=== PATIENT | female | born 1935 | race Caucasian/White ===

== ENCOUNTER 2017-09-12 15:17 | Emergency (ER) | payer BC, OTHER ==
[~2017-09-12] VITALS: Ht 149.9 cm; Wt 58.0 kg
[~2017-09-12 15:17] MED LIST: AMLO10TA4 PO; ASPEC81 PO; BUSP15TA70 PO; CALC500C70 PO; CRAN1TAB9 PO; DICY10CA12 PO; FLAX100024 PO; FLNIN NAE; GARLIC OIL PO; GLC500 PO; HYDR25TA4 PO; IRON1TAB5 PO; LISI40TA PO; LORA-741 PO; MELA1CAP PO; METO50TA7 PO; MISCCAP80 PO; MULT-506 PO; PANT40TA PO; POLY335019 PO; SIME1CAP9 PO; TRAM-10 PO; TRAZ1TAB16 PO; TYLOTC500 PO; VENL75CA PO; ZOLE5INJ IV; [UNRECOGNIZED DRUG - OTHER] OPB
[2017-09-12 15:23] VITALS: TEMP 36.7; Ht 149.9 cm; Wt 58.0 kg
[2017-09-12] MEDS ORDERED: OXYCODONE/ACETAMINOPHEN 5-325 TAB PO STA (15:50)
--- NOTE | 2017-09-12 15:55 | EMERGENCY ROOM VISIT NOTE ---
History First contact with patient: 15:27 Chief Complaint: OTHER COMPLAINT Stated Complaint: TINGLING IN FEET,LOWER LEGS,SOME IN ARMS History of Present Illness The patient is a 81 year old female who presents to the Emergency Room via private vehicle accompanied by with complaints of "tingling in feet, lower legs, some in arms". The patient states that she has diabetes, and for the past few days as a tingling intermittently in her feet, radiating up her calves bilaterally and shins as well as in her hands and wrists. She felt this could be diabetic neuropathy but believes it is very fast onset if it is. She states that yesterday evening she began with diarrhea, and suddenly additional episodes. She states that she also has urinary burning like she has UTI. She is tried Imodium as well as a Zofran to diarrhea and urine. She called the doctor office and spoke with the nurse who told her to stop the Azo if she was coming here for the urinalysis. She notes she is not held her medication today. She thought maybe the oxycodone which she's been taking for her chronic back pain could because the tingling therefore stopped it. She notes that the back pain is worse, but she's not had her medication. She also notes some chest burning which began today. She notes she has many gastric problems to include gastroparesis. There are associated chills. She denies any speech troubles, or weakness. Review of Systems A complete 10-point Review of Systems was discussed with the patient, with pertinent positives and negatives listed in the History of Present Illness. All remaining Review of Systems questions can be considered negative unless otherwise specified. Past Medical/Surgical History Medical Problems: (1) Diabetes mellitus type 2 (2) Diastolic heart failure (3) Diverticular disease of colon (4) Dyslipidemia (5) Dysphagia (6) Gastroesophageal reflux disease (7) Gastroparesis (8) History of adenomatous polyp of colon (9) s/p appendectomy (10) s/p bladder suspension (11) s/p cardiac cath (12) s/p cholecystectomy (13) s/p colonoscopy (14) s/p hysterectomy Family History No pertinent. Social History Smoking Status: Never Smoker Alcohol Use: none Drug Use: none Marital Status: Housing Status: lives with family Occupation Status: retired Current/Historical Medications Scheduled Amlodipine Besylate (Norvasc), 10 MG PO DAILY Aspirin Enteric Coated (Ecotrin Or Generic), 81 MG PO DAILY Atorvastatin (Lipitor), 10 MG PO DAILY Bupropion (Wellbutrin Sr), 50 MG PO DAILY Calcium/Vitamin D (Os-Vladislav 500 Plus D), 1 TAB PO BID Cephalexin Monohydrate (Keflex), 500 MG PO BID Citalopram (Citalopram Hydrobromide), 1 TAB PO DAILY Cranberry (Vaccinium Macrocarp (Cranberry), 1 TAB PO DAILY Diclofenac Sodium (Topical) (Voltaren 1% Top Gel), 1 APPLN TOP PRN UD Flaxseed (Linseed) (Flax Seed Oil), 1,000 MG PO DAILY Glipizide (Glipizide Er), 1 TAB PO DAILY Hydrochlorothiazide (Hctz), 25 MG PO DAILY Lisinopril (Prinivil), 40 MG PO DAILY Melatonin-Pyridoxine (Melatonin), 3 MG PO HS Metoprolol Succ (Toprol Xl) (Toprol-Xl ), 100 MG PO BID Multivitamin (Multivitamin), 1 TAB PO DAILY Pantoprazole (Protonix), 40 MG PO DAILY Probiotic Product (Probiotic), 1 CAP PO DAILY [Garlic Oil 1000MG], 2 CAPSULES PO DAILY Scheduled PRN Dicyclomine Hcl (Dicyclomine Hcl), 10 MG PO TID PRN for CRAMPS Fluticasone Propionate (Nasal) (Flonase Allergy Relief), 2 SPRAYS RICHIE DAILY PRN for Nasal Congestion Lorazepam (Ativan), 0.5 MG PO HS PRN for Sleep Oxycodone/Acetaminophen 5MG/325MG (Percocet 5MG/325MG), 1 TABLET PO Q6H PRN for Pain Polyethylene Glycol 3350 (Miralax), 1 DOSE PO 3XWK PRN for PRN Polyethylene Glycol-Propylene (Systane), 1 DROPS OP QID PRN for DRY EYES Simethicone (Gas Relief), 1 CAP PO DAILY PRN for PRN Sucralfate (Carafate), 1 TAB PO ACHS PRN for Trazodone Hcl (Desyrel), 25-50 MG PO HS PRN for Sleep Physical Exam Vital Signs Date Time Temp Pulse Resp B/P (MAP) Pulse Ox O2 Delivery O2 Flow Rate FiO2 09/12/17 18:00 62 18 127/69 94 09/12/17 17:05 66 18 132/66 98 Room Air 09/12/17 16:09 71 09/12/17 16:00 97 Room Air 09/12/17 15:23 36.7 69 18 113/68 98 Room Air Physical Exam VITAL SIGNS - Vital signs and nursing notes were reviewed. Stable. GENERAL - 81-year-old female appearing her stated age who is in no acute distress. Communicates well with provider and answers questions appropriately. SKIN - Without rashes. HEAD - NC/AT. EYES - PERRL with EOMI bilaterally. Sclera anicteric. Palpebral conjunctiva pink and moist with no injection noted. EARS - No deformities of external structures noted on gross examination bilaterally. No pain elicited with palpation of the tragus bilaterally. External auditory canals without discharge or otorrhea. Tympanic membranes pearly andino without retraction or bulging. No fluid or purulent material visualized behind the TM. Handle of malleus, umbo, cone of light, pars tensa/ flaccid all easily visualized. NOSE - Midline and without cyanosis. No epistaxis or purulent drainage noted. Septum midline without deviation or septal hematoma noted. MOUTH/OROPHARYNX - Without perioral cyanosis. Buccal mucosa pink and moist and without leukoplakia. Tongue midline with equal elevation of palate bilaterally. No tonsillar hypertrophy, erythema, or exudates noted. Fair dentition noted. NECK - Neck with FROM. Supple to palpation. No lymphadenopathy noted. No nuchal rigidity. LUNGS - Chest wall symmetric without accessory muscle use, intercostals retractions, or central cyanosis. Normal vesicular breath sounds CTA B/L. No wheezes, rales, or rhonchi appreciated. CARDIAC - RRR with S1/S2. No murmur, rubs, or gallops appreciated. ABDOMEN - Abdominal contour normal without pulsations or visible masses. BS normoactive all four quadrants. No tenderness, palpable masses, hepatosplenomegaly, or ascites noted. EXTREMITIES - No clubbing or peripheral cyanosis. No pretibial edema present. + 5/5 strength noted in UE/LE bilaterally. NEUROLOGIC - Cranial nerves II through XII grossly intact. Sensory intact to light touch throughout. PSYCH - A&O, and cooperates fully with examiner. Pt is very pleasant and interacts well with examiner. Medical Decision & Procedures ER Provider Diagnostic Interpretation: CHEST ONE VIEW PORTABLE HISTORY: Atypical chest pain COMPARISON: Chest 08/19/2014. FINDINGS: The lungs are clear. The heart remains mildly enlarged. Tortuous thoracic aorta. No pleural effusions. No pneumothorax. S-shaped scoliosis. Lumbar spine fusion hardware. IMPRESSION: Stable mild cardiomegaly. No acute process within the chest. Electronically signed by: Sukhdeep Mercer M.D. 09/12/2017 4:14 PM Dictated Date/Time: 09/12/2017 4:13 PM Laboratory Results 09/12/17 15:54 Red Blood Count 4.19, Mean Corpuscular Volume 94.0, Mean Corpuscular Hemoglobin 31.5, Mean Corpuscular Hemoglobin Concent 33.5, Mean Platelet Volume 9.6, Neutrophils (%) (Auto) 75.0, Lymphocytes (%) (Auto) 14.8, Monocytes (%) (Auto) 9.0, Eosinophils (%) (Auto) 0.6, Basophils (%) (Auto) 0.5, Neutrophils # (Auto) 6.01, Lymphocytes # (Auto) 1.19, Monocytes # (Auto) 0.72, Eosinophils # (Auto) 0.05, Basophils # (Auto) 0.04 09/12/17 15:54 Test 09/12/17 15:40 09/12/17 15:54 Urine Color DK YELLOW Urine Appearance CLEAR (CLEAR) Urine pH 6.0 (4.5-7.5) Urine Specific [place] 1.022 (1.000-1.030) Urine Protein NEG (NEG) Urine Glucose (UA) NEG (NEG) Urine Ketones NEG (NEG) Urine Occult Blood NEG (NEG) Urine Nitrite POS (NEG) Urine Bilirubin NEG (NEG) Urine Urobilinogen NEG (NEG) Urine Leukocyte Esterase TRACE (NEG) Urine WBC (Auto) 1-5 /hpf (0-5) Urine RBC (Auto) 0-4 /hpf (0-4) Urine Hyaline Casts (Auto) 1-5 /lpf (0-5) Urine Epithelial Cells (Auto) >30 /lpf (0-5) Urine Bacteria (Auto) NEG (NEG) White Blood Count 8.02 K/uL (4.8-10.8) Red Blood Count 4.19 M/uL (4.2-5.4) Hemoglobin 13.2 g/dL (12.0-16.0) Hematocrit 39.4 % (37-47) Mean Corpuscular Volume 94.0 fL (80-100) Mean Corpuscular Hemoglobin 31.5 pg (25-34) Mean Corpuscular Hemoglobin Concent 33.5 g/dl (32-36) Platelet Count 251 K/uL (130-400) Mean Platelet Volume 9.6 fL (7.4-10.4) Neutrophils (%) (Auto) 75.0 % Lymphocytes (%) (Auto) 14.8 % Monocytes (%) (Auto) 9.0 % Eosinophils (%) (Auto) 0.6 % Basophils (%) (Auto) 0.5 % Neutrophils # (Auto) 6.01 K/uL (1.4-6.5) Lymphocytes # (Auto) 1.19 K/uL (1.2-3.4) Monocytes # (Auto) 0.72 K/uL (0.11-0.59) Eosinophils # (Auto) 0.05 K/uL (0-0.5) Basophils # (Auto) 0.04 K/uL (0-0.2) RDW Standard Deviation 45.1 fL (36.4-46.3) RDW Coefficient of Variation 13.0 % (11.5-14.5) Immature Granulocyte % (Auto) 0.1 % Immature Granulocyte # (Auto) 0.01 K/uL (0.00-0.02) Prothrombin Time 10.7 SECONDS (9.0-12.0) Prothromb Time International Ratio 1.0 (0.9-1.1) Activated Partial Thromboplast Time 30.1 SECONDS (21.0-31.0) Partial Thromboplastin Ratio 1.2 Anion Gap 8.0 mmol/L (3-11) Est Creatinine Clear Calc Drug Dose 39.8 ml/min Estimated GFR () 73.4 Estimated GFR (Non- 63.4 BUN/Creatinine Ratio 29.7 (10-20) Calcium Level 8.6 mg/dl (8.5-10.1) Magnesium Level 2.2 mg/dl (1.8-2.4) Total Bilirubin 0.4 mg/dl (0.2-1) Aspartate Amino Transf (AST/SGOT) 13 U/L (15-37) Alanine Aminotransferase (ALT/SGPT) 21 U/L (12-78) Alkaline Phosphatase 86 U/L (45-117) Total Creatine Kinase 107 U/L (26-192) Creatine Kinase MB 1.5 ng/ml (0.5-3.6) Creatine Kinase MB Ratio 1.4 (0-3.0) Troponin I < 0.015 ng/ml (0-0.045) Total Protein 8.2 gm/dl (6.4-8.2) Albumin 4.0 gm/dl (3.4-5.0) Globulin 4.2 gm/dl (2.5-4.0) Albumin/Globulin Ratio 1.0 (0.9-2) Thyroid Stimulating Hormone (TSH) 4.310 uIu/ml (0.300-4.500) Medications Administered Medications (Trade) Dose Ordered Sig/Melany Route Start Time Stop Time Status Last Admin Dose Admin Oxycodone/ Acetaminophen (Percocet 5-325mg Tab) 1 tab NOW STAT PO 09/12/17 15:50 09/12/17 15:52 DC 09/12/17 16:10 1 TAB Medical Decision Patient was seen and evaluated as above. She presents to us today with tingling in feet, lower legs and the arms bilaterally. She notes it is over the past few days, there is also chest burning, urinary burning, and back pain. She examines well, and has stable vital signs. Chest x-ray stable compared to previous. Bedside EKG reveals normal sinus rhythm, and when compared with EKG of May 22 2014 no significant change was found. Troponin was negative. Urine has nitrites, I suspect UTI. Exam reveals no evidence of neurologic cause from the brain. CBC reveals no concerning leukocytosis or anemia. Coag is normal. Metabolic panel reveals sodium somewhat low at 134, BUN high at 25, creatinine is okay. Because high at 188. Urine again positive for nitrites. I able this time treat for UTI, and discussed the case with the attending physician. I suspect she is likely experiencing reflux, chronic back pain, I UTI as well as probably dehydration causing some of the tingling. She is to follow with her family doctor regarding today's visit. She appears stable for outpatient management. She will be given Keflex in the outpatient setting. She was educated upon management, educated upon worrisome symptoms which to return, had questions answered prior to discharge, and was discharged home in good condition. In evaluation treatment this patient following differential diagnoses were entertained: WI, PE, CVA, TIA, dehydration, unlikely slight abnormality, UTI, among others. Impression Primary Impression: UTI (urinary tract infection) Departure Information Dispostion Home / Self-Care Condition GOOD Prescriptions Cephalexin Monohydrate (Keflex) 500 Mg Cap 500 MG PO BID for 7 Days, #14 CAP Prov: Bill Wiley PA-C 09/12/17 Referrals No Doctor, Assigned (PCP) Patient Instructions My [facility] Additional Instructions You have been treated in the Emergency Department for a Urinary Tract Infection (UTI). You have been prescribed keflex to be taken twice daily. This is an antibiotic. All antibiotics have the potential to cause diarrhea. Stop this medication and contact a medical provider if you were to develop any significant adverse side effects including: wheezing, shortness of breath, passing out, vomiting, or a diffuse rash. Always take antibiotics as directed and COMPLETE the ENTIRE course regardless of the improvement of your symptoms. Return to the emergency department if your symptoms worsen despite treatment course outlined above. Drink plenty of water and stay well hydrated. As with any trip to the Emergency Department, you should follow-up with your Primary Care Provider from today's visit. Return to the emergency department if your symptoms persist despite treatment plan outlined above or if the following symptoms occur: increased fevers, chills , low back pain, nausea/vomiting, or blood in your urine.
[2017-09-12 15:59] LABS: URINE APPEARANCE CLEAR (CLEAR); URINE BILIRUBIN NEG (NEG); URINE COLOR DK YELLOW; URINE EPITHELIAL CELL AUTO >30 /lpf (0-5); URINE NITRITE POS (NEG); URINE SPECIFIC GRAVITY 1.022 (1.000-1.030); UROBILINOGEN NEG (NEG); ZZUR CULT IF INDIC CLEAN CATCH NO
[2017-09-12 16:00] VITALS: O2SAT 97
[2017-09-12 16:09] LABS: BASO % 0.5 %; BASO ABS # 0.04 K/uL (0-0.2); COMPLETE YES; EOS % 0.6 %; HEMATOCRIT 39.4 % (37-47); IG% 0.1 %; LYMPH % 14.8 %; LYMPH ABS # 1.19 K/uL (1.2-3.4); MEAN CORPUSCULAR HEMOGLOBIN 31.5 pg (25-34); MEAN CORPUSCULAR HGB CONC 33.5 g/dl (32-36); MEAN PLATELET VOLUME 9.6 fL (7.4-10.4); PLATELET COUNT 251 K/uL (130-400); RED BLOOD COUNT 4.19 M/uL (4.2-5.4); WHITE BLOOD COUNT 8.02 K/uL (4.8-10.8)
--- NOTE | 2017-09-12 16:16 | DIAGNOSTIC IMAGING REPORT ---
CHEST ONE VIEW PORTABLE HISTORY: Atypical chest pain COMPARISON: Chest 08/19/2014. FINDINGS: The lungs are clear. The heart remains mildly enlarged. Tortuous thoracic aorta. No pleural effusions. No pneumothorax. S-shaped scoliosis. Lumbar spine fusion hardware. IMPRESSION: Stable mild cardiomegaly. No acute process within the chest. Electronically signed by: Sukhdeep Mercer M.D. 09/12/2017 4:14 PM Dictated Date/Time: 09/12/2017 4:13 PM
[2017-09-12 16:23] LABS: PARTIAL THROMBOPLASTIN RATIO 1.2; PROTHROMBIN TIME (PATIENT) 10.7 SECONDS (9.0-12.0)
[2017-09-12 16:30] LABS: ALT/SGPT 21 U/L (12-78); AST/SGOT 13 U/L (15-37); BLOOD UREA NITROGEN 25 mg/dl (7-18); BUN/CREATININE RATIO 29.7 (10-20); CALCIUM 8.6 mg/dl (8.5-10.1); CARBON DIOXIDE 27 mmol/L (21-32); CHLORIDE 99 mmol/L (98-107); CREATININE 0.86 mg/dl (0.60-1.20); GLUCOSE 188 mg/dl (70-99); MAGNESIUM 2.2 mg/dl (1.8-2.4); POTASSIUM 3.7 mmol/L (3.5-5.1); SODIUM 134 mmol/L (136-145)
[2017-09-12] MEDS ORDERED: ATOR10TA88 PO (16:40)
[2017-09-12 16:41] LABS: ALKALINE PHOSPHATASE 86 U/L (45-117); CKMB/CK RATIO 1.4 (0-3.0)
[2017-09-12 16:47] LABS: MANUAL MICROSCOPIC REQUIRED? NO; REVIEW REQ? NO
[2017-09-12] MEDS ORDERED: FLAX1CAP11 PO (17:10)
[2017-09-12] MEDS ORDERED: POLYSOL4 OP (17:10)
[2017-09-12] MEDS ORDERED: METO1TAB69 PO (17:10)
[2017-09-12] MEDS ORDERED: OXYC-57 PO (17:10)
[2017-09-12] MEDS ORDERED: ASPI81TA21 PO (17:10)
[2017-09-12] MEDS ORDERED: CITA40TA4 PO (17:10)
[2017-09-12] MEDS ORDERED: DICL1GEL12 TOP (17:10)
[2017-09-12] MEDS ORDERED: SUCR1TAB29 PO (17:10)
[2017-09-12] MEDS ORDERED: BUPR100T8 PO (17:10)
[2017-09-12] MEDS ORDERED: FLUT0.15 NAE (17:10)
[2017-09-12] MEDS ORDERED: GLIP-199 PO (17:10)
[2017-09-12] MEDS ORDERED: MELA1TAB9 PO (17:10)
[2017-09-12] MEDS ORDERED: CRAN1TAB9 PO (17:10)
[2017-09-12] MEDS ORDERED: CEPH500C PO (17:34)
[2017-09-12 18:00] VITALS: BP 127/69; PULSE 62; O2SAT 94
--- NOTE | 2017-09-12 22:37 | EMERGENCY ROOM VISIT NOTE ---
ED Visit Note First contact with patient: 15:27 I have personally evaluated this patient examined her and reviewed the pertinent labs and data. I have discussed the case with Bill Wiley, the physician assistant finance manager and agree with the plan. Please refer to the PA note. This patient comes in with tingling in her legs. She has a normal neurologic exam. On my exam she has no neurologic deficits. She has multiple vague complaints. She does have some urinary symptoms as well. Urinalysis does suggest a UTI. The rest of her blood work is unremarkable. She's had nothing to suggest sepsis. We will treat her with Keflex and she can follow up with her regular doctor.
== END 2017-09-12 18:01 | disposition home or self-care (01) ==
LOC: C.EDB 15:19
DX: N39.0 Urinary tract infection, site not specified (principal); E86.0 Dehydration; E11.43 Type 2 diabetes mellitus with diabetic autonomic (poly)neuropathy; M54.9 Dorsalgia, unspecified; G89.29 Other chronic pain; I50.30 Unspecified diastolic (congestive) heart failure; E78.5 Hyperlipidemia, unspecified; K21.9 Gastro-esophageal reflux disease without esophagitis; Z90.49 Acquired absence of other specified parts of digestive tract; Z90.710 Acquired absence of both cervix and uterus; Z79.82 Long term (current) use of aspirin; Z79.899 Other long term (current) drug therapy

== ENCOUNTER 2018-04-12 16:45 | Emergency (ER) | payer OTHER ==
[~2018-04-12] VITALS: Ht 149.9 cm; Wt 63.4 kg
[2018-04-12 16:45] VITALS: TEMP 37; Ht 149.9 cm; Wt 63.4 kg
[~2018-04-12 16:45] MED LIST changes: -ASPEC81 PO; +ATOR10TA82 PO; -BUSP15TA70 PO; -CRAN1TAB9 PO; -FLAX100024 PO; -FLNIN NAE; -GLC500 PO; -IRON1TAB5 PO; -MELA1CAP PO; -METO50TA7 PO; +SUCR1TAB29 PO; -TRAM-10 PO; +TRAZ-119 PO; -TRAZ1TAB16 PO; -TYLOTC500 PO; -VENL75CA PO; -ZOLE5INJ IV; -[UNRECOGNIZED DRUG - OTHER] OPB
[2018-04-12] MEDS ORDERED: DICL1GEL12 TOP (17:10)
[2018-04-12] MEDS ORDERED: POLYSOL4 OP (17:10)
[2018-04-12] MEDS ORDERED: BUPR100T8 PO (17:10)
[2018-04-12] MEDS ORDERED: OXYC-57 PO (17:10)
[2018-04-12] MEDS ORDERED: MELA1TAB9 PO (17:10)
[2018-04-12] MEDS ORDERED: METO100T44 PO (17:10)
[2018-04-12] MEDS ORDERED: GLIP-199 PO (17:10)
[2018-04-12] MEDS ORDERED: CITA40TA4 PO (17:10)
[2018-04-12] MEDS ORDERED: CRAN1TAB9 PO (17:10)
[2018-04-12] MEDS ORDERED: FLAX1CAP11 PO (17:10)
[2018-04-12] MEDS ORDERED: ASPI-319 PO (17:10)
[2018-04-12] MEDS ORDERED: FLUT0.15 NAE (17:10)
[2018-04-12] MEDS ORDERED: GABA-112 PO (17:50)
[2018-04-12] MEDS ORDERED: HYDR12.55 PO (17:50)
--- NOTE | 2018-04-12 18:11 | DIAGNOSTIC IMAGING REPORT ---
ABDOMEN AND PELVIS CT WITHOUT CONTRAST CT DOSE: HISTORY: Left lower quadrant distention, left hip pain TECHNIQUE: Multiaxial CT images of the abdomen and pelvis were performed without contrast. A dose lowering technique was utilized adhering to the principles of ALARA. COMPARISON STUDY: Abdomen and pelvis CT 06/06/2014. FINDINGS: Bibasilar linear densities consistent with subsegmental atelectasis. No pneumoperitoneum. No pneumatosis. Levoscoliosis and posterior fusion within the lumbar spine. Punctate calcified granuloma within the unenhanced liver. The gallbladder is identified and likely surgically absent. Mild intra and extra hepatic bile duct dilatation which is new from the prior study. The unenhanced pancreas is not well visualized due to the metallic artifact from the posterior fusion hardware. The pancreatic tail is truncated. The unenhanced spleen demonstrates multiple punctate calcified granulomas. The unenhanced adrenal glands and kidneys are also suboptimally assessed due to metallic artifact but appear to be unremarkable. No hydronephrosis. Tiny fat-containing umbilical hernia. The bladder is unremarkable. The uterus is not identified and likely surgically absent. Suboptimal evaluation for bowel pathology due to the lack of intravenous and oral contrast. However, there is no definite bowel wall thickening or obstruction. A few colonic diverticula. Short segment of distal ileum seen within a small right inguinal hernia. There is no extrinsic dilatation of the bowel to suggest an obstruction at this time. IMPRESSION: 1. Interval development of mild intra and extrahepatic dilatation. This is nonspecific but raises the possibility of an occult obstructing process. Recommend correlation with LFTs for further evaluation. 2. No definite bowel wall thickening or obstruction. 3. Small right inguinal hernia containing a short segment of small bowel. 4. Colonic diverticulosis. 5. Posterior fusion seen within the lumbar spine and levoscoliosis. Electronically signed by: Sukhdeep Mercer M.D. 04/12/2018 6:10 PM Dictated Date/Time: 04/12/2018 5:58 PM
--- NOTE | 2018-04-12 18:41 | DIAGNOSTIC IMAGING REPORT ---
CT SCAN OF THE LUMBAR SPINE WITHOUT IV CONTRAST CLINICAL HISTORY: Acute on chronic low back pain. COMPARISON STUDY: CT scan of the lumbar spine dated 06/24/2014. Abdominal CT performed concurrently on 04/12/2018. TECHNIQUE: CT scan of the lumbar spine is performed from the lower thoracic spine to the sacrum. Images are reviewed in the axial, sagittal, and coronal planes. IV contrast was not administered for this examination. A dose lowering technique was utilized adhering to the principles of ALARA. The examination is degraded by spinal scoliosis, as well as by streak artifact from metallic spinal hardware. CT DOSE: 248.43 mGy.cm FINDINGS: The skeletal structures are osteopenic. There is no evidence of acute fracture or malalignment. There is moderate to advanced lumbar levocurvature, centered at L2. Vertebral body height is maintained throughout the lumbar spine. There is grade 1 anterolisthesis at L4-L5. Alignment is otherwise preserved. There is straightening of the lumbar lordosis. There are postoperative changes from laminectomy and posterior fusion seen from L2 to S1. Interpedicular screws are present at all levels. The orthopedic hardware appears intact. Lucency around the sacral screws is nonspecific and can be seen in the setting of loosening. There is a healed left transverse process fracture of L4. There is evidence of discectomy at L3-L4. Advanced disc space narrowing is seen at the remaining lumbar levels with foci of vacuum phenomenon and multilevel degenerative endplate sclerosis. The central canal is not well assessed due to significant streak artifact from metallic spinal hardware. The sacrum and bony pelvis are intact as visualized. Degenerative change and vacuum phenomenon are noted in the sacroiliac joints. There is fatty atrophy of the paraspinous musculature. Advanced atherosclerotic calcification is noted in the abdominal aorta. IMPRESSION: 1. No acute bony abnormality is seen involving the lumbar spine. 2. Osteopenia with advanced lumbosacral spondylosis, scoliosis, and postoperative change as above. 3. Lucency around the sacral interpedicular screws is nonspecific and suggests loosening. Dictated: 04/12/2018 6:27 PM Transcribed: 04/12/2018 6:41 PM NARAYAN_Negrito Electronically signed by: Miguel Angel Reyes M.D. 04/12/2018 6:42 PM Dictated Date/Time: 04/12/2018 6:27 PM
[2018-04-12] MEDS ORDERED: OXYCODONE/ACETAMINOPHEN 5-325 TAB PO STA (19:49)
[2018-04-12] MEDS ORDERED: CYCLOBENZAPRINE HCL 10 MG TAB PO STA (19:49)
[2018-04-12] MEDS ORDERED: GABAPENTIN 100 MG CAP PO STA (19:49)
[2018-04-12] MEDS ORDERED: LIDODERM (LIDOCAINE) PATCH 5% TD STA (19:49)
--- NOTE | 2018-04-12 20:16 | EMERGENCY ROOM VISIT NOTE ---
History Report prepared by Too: Arabella Garcia Under the Supervision of: Dr. Medina Strong D.O. First contact with patient: 16:46 Chief Complaint: LEG PAIN,LEG INJURY Stated Complaint: LEFT LEG PAIN History of Present Illness The patient is an 82 year old female who presents to the Emergency Room with complaints of persistent left leg pain starting earlier today. The patient has a history of chronic hip, lower back, and leg pain since having back surgery 3 years ago. Today she was at [place] and walked for a longer distance than usual. She was using her walker. She started having worsening left leg and hip pain while walking around. After returning home, she turned and reached out for something when she suddenly had a sharp pain in her left leg. She has never had this before. She has been unable to bear weight on her left leg since then because of the pain. The pain is mostly in her left hip and thigh. She also has some pain in her left lower back. She denies any numbness or tingling. She did not fall. Her pain improves with sitting down. She has a dull constant pain in this area usually which she rates as a 7/10 in severity. She denies any falls, other change in activity, or medication changes. She has some constipation from being on pain medications. She denies any fever, chills, or urinary symptoms. She has been diaphoretic at night. She has felt more bloated in her left lower abdomen recently. She has noticed the bones in her back cracking more over the past few months. Source of History: patient Onset: earlier today Position: leg (left) Symptom Intensity: 7/10 Quality: sharp, dull Timing: other (persistent) Modifying Factors (Worsening): other (weight bearing) Modifying Factors (Relieving): rest Associated Symptoms: + back pain, No fevers, No chills, No urinary symptoms Note: Pt reports abdominal bloating. Review of Systems See HPI for pertinent positives & negatives. A total of 10 systems reviewed and were otherwise negative. Past Medical & Surgical Medical Problems: (1) Diabetes mellitus type 2 (2) Diastolic heart failure (3) Diverticular disease of colon (4) Dyslipidemia (5) Dysphagia (6) Gastroesophageal reflux disease (7) Gastroparesis (8) History of adenomatous polyp of colon (9) s/p appendectomy (10) s/p bladder suspension (11) s/p cardiac cath (12) s/p cholecystectomy (13) s/p colonoscopy (14) s/p hysterectomy Family History Noncontributory secondary to age. Social History Smoking Status: Never Smoker Alcohol Use: none Drug Use: none Marital Status: Housing Status: lives with family Occupation Status: retired Current/Historical Medications Scheduled Aspirin Enteric Coated (Ecotrin Or Generic), 81 MG PO DAILY Atorvastatin (Lipitor), 10 MG PO DAILY Bupropion (Wellbutrin Sr), 50 MG PO DAILY Calcium/Vitamin D (Os-Vladislav 500 Plus D), 1 TAB PO BID Citalopram (Citalopram Hydrobromide), 60 MG PO DAILY Cranberry (Vaccinium Macrocarp (Cranberry), 1 TAB PO DAILY Cyclobenzaprine Hcl (Flexeril), 5 MG PO TID Diclofenac Sodium (Topical) (Voltaren 1% Top Gel), 1 APPLN TOP PRN UD Flaxseed (Linseed) (Flax Seed Oil), 1,000 MG PO DAILY Gabapentin (Neurontin), 100 MG PO TID Glipizide (Glipizide Er), 1 TAB PO DAILY Hydrochlorothiazide (Hydrochlorothiazide), 1 TAB PO DAILY Lisinopril (Prinivil), 40 MG PO DAILY Melatonin-Pyridoxine (Melatonin), 3 MG PO HS Metoprolol Succ (Toprol Xl) (Toprol-Xl ), 100 MG PO BID Multivitamin (Multivitamin), 1 TAB PO DAILY Pantoprazole (Protonix), 40 MG PO DAILY Probiotic Product (Probiotic), 1 CAP PO DAILY [Garlic Oil 1000MG], 2 CAPSULES PO DAILY Scheduled PRN Dicyclomine Hcl (Dicyclomine Hcl), 10 MG PO TID PRN for CRAMPS Fluticasone Propionate (Nasal) (Flonase Allergy Relief), 2 SPRAYS RICHIE DAILY PRN for Nasal Congestion Oxycodone/Acetaminophen 5MG/325MG (Percocet 5MG/325MG), 1 TABLET PO Q6H PRN for Pain Polyethylene Glycol 3350 (Miralax), 1 DOSE PO 3XWK PRN for PRN Polyethylene Glycol-Propylene (Systane), 1 DROPS OP QID PRN for DRY EYES Simethicone (Gas Relief), 1 CAP PO DAILY PRN for PRN Trazodone Hcl (Desyrel), 25-50 MG PO HS PRN for Sleep Allergies Coded Allergies: Metformin (Verified Allergy, Unknown, GI SYMPTOMS, 09/12/17) Nitrofurantoin (Verified Allergy, Unknown, NAUSEA, TEMPERATURE ELEVATION, 03/15/15) Sulfa Drugs (Verified Allergy, Unknown, UNKNOWN, 03/15/15) Physical Exam Vital Signs Date Time Temp Pulse Resp B/P (MAP) Pulse Ox O2 Delivery O2 Flow Rate FiO2 04/12/18 21:42 64 18 157/73 94 04/12/18 20:33 64 18 155/72 94 Room Air 04/12/18 19:00 59 20 162/83 94 Room Air 04/12/18 16:45 37.0 63 18 167/83 94 Room Air Physical Exam GENERAL: alert, well appearing, well nourished, no distress, non-toxic EYE EXAM: normal conjunctiva, PERRL and EOM's grossly intact OROPHARYNX: no exudate, no erythema, lips, buccal mucosa, and tongue normal and mucous membranes are moist NECK: supple, no nuchal rigidity, no adenopathy, non-tender LUNGS: Clear to auscultation. Normal chest wall mechanics HEART: no murmurs, S1 normal and S2 normal ABDOMEN: abdomen soft, non-tender, normo-active bowel sounds, no masses, no rebound or guarding. BACK: Back is symmetrical on inspection and there is no deformity, no midline tenderness, no CVA tenderness. Tenderness to left lower back. SKIN: no rashes and no bruising UPPER EXTREMITIES: upper extremities are grossly normal. FROM, nml pulses. LOWER EXTREMITIES: Tenderness to posterior aspect of left lateral hip, no deformity, no joint effusion, normal pulses, no edema. Decreased ROM of LLE secondary to pain. Nml pulses, no edema b/l. NEURO EXAM: Normal sensorium, cranial nerves II-XII grossly intact, normal speech, no gross weakness of arms, no gross weakness of legs. Medical Decision & Procedures ER Provider Diagnostic Interpretation: Radiology results have been interpreted by the radiologist and reviewed by me. ABDOMEN AND PELVIS CT WITHOUT CONTRAST CT DOSE: HISTORY: Left lower quadrant distention, left hip pain TECHNIQUE: Multiaxial CT images of the abdomen and pelvis were performed without contrast. A dose lowering technique was utilized adhering to the principles of ALARA. COMPARISON STUDY: Abdomen and pelvis CT 06/06/2014. FINDINGS: Bibasilar linear densities consistent with subsegmental atelectasis. No pneumoperitoneum. No pneumatosis. Levoscoliosis and posterior fusion within the lumbar spine. Punctate calcified granuloma within the unenhanced liver. The gallbladder is identified and likely surgically absent. Mild intra and extra hepatic bile duct dilatation which is new from the prior study. The unenhanced pancreas is not well visualized due to the metallic artifact from the posterior fusion hardware. The pancreatic tail is truncated. The unenhanced spleen demonstrates multiple punctate calcified granulomas. The unenhanced adrenal glands and kidneys are also suboptimally assessed due to metallic artifact but appear to be unremarkable. No hydronephrosis. Tiny fat-containing umbilical hernia. The bladder is unremarkable. The uterus is not identified and likely surgically absent. Suboptimal evaluation for bowel pathology due to the lack of intravenous and oral contrast. However, there is no definite bowel wall thickening or obstruction. A few colonic diverticula. Short segment of distal ileum seen within a small right inguinal hernia. There is no extrinsic dilatation of the bowel to suggest an obstruction at this time. IMPRESSION: 1. Interval development of mild intra and extrahepatic dilatation. This is nonspecific but raises the possibility of an occult obstructing process. Recommend correlation with LFTs for further evaluation. 2. No definite bowel wall thickening or obstruction. 3. Small right inguinal hernia containing a short segment of small bowel. 4. Colonic diverticulosis. 5. Posterior fusion seen within the lumbar spine and levoscoliosis. Electronically signed by: Sukhdeep Mercer M.D. 04/12/2018 6:10 PM Dictated Date/Time: 04/12/2018 5:[address] SCAN OF THE LUMBAR SPINE WITHOUT IV CONTRAST CLINICAL HISTORY: Acute on chronic low back pain. COMPARISON STUDY: CT scan of the lumbar spine dated 06/24/2014. Abdominal CT performed concurrently on 04/12/2018. TECHNIQUE: CT scan of the lumbar spine is performed from the lower thoracic spine to the sacrum. Images are reviewed in the axial, sagittal, and coronal planes. IV contrast was not administered for this examination. A dose lowering technique was utilized adhering to the principles of ALARA. The examination is degraded by spinal scoliosis, as well as by streak artifact from metallic spinal hardware. CT DOSE: 248.43 mGy.cm FINDINGS: The skeletal structures are osteopenic. There is no evidence of acute fracture or malalignment. There is moderate to advanced lumbar levocurvature, centered at L2. Vertebral body height is maintained throughout the lumbar spine. There is grade 1 anterolisthesis at L4-L5. Alignment is otherwise preserved. There is straightening of the lumbar lordosis. There are postoperative changes from laminectomy and posterior fusion seen from L2 to S1. Interpedicular screws are present at all levels. The orthopedic hardware appears intact. Lucency around the sacral screws is nonspecific and can be seen in the setting of loosening. There is a healed left transverse process fracture of L4. There is evidence of discectomy at L3-L4. Advanced disc space narrowing is seen at the remaining lumbar levels with foci of vacuum phenomenon and multilevel degenerative endplate sclerosis. The central canal is not well assessed due to significant streak artifact from metallic spinal hardware. The sacrum and bony pelvis are intact as visualized. Degenerative change and vacuum phenomenon are noted in the sacroiliac joints. There is fatty atrophy of the paraspinous musculature. Advanced atherosclerotic calcification is noted in the abdominal aorta. IMPRESSION: 1. No acute bony abnormality is seen involving the lumbar spine. 2. Osteopenia with advanced lumbosacral spondylosis, scoliosis, and postoperative change as above. 3. Lucency around the sacral interpedicular screws is nonspecific and suggests loosening. Dictated: 04/12/2018 6:27 PM Transcribed: 04/12/2018 6:41 PM NARAYAN_Negrito Electronically signed by: Miguel Angel Reyes M.D. 04/12/2018 6:42 PM Dictated Date/Time: 04/12/2018 6:27 PM Laboratory Results Test 04/12/18 17:27 Urine Color YELLOW Urine Appearance CLEAR (CLEAR) Urine pH 7.5 (4.5-7.5) Urine Specific [place] 1.013 (1.000-1.030) Urine Protein NEG (NEG) Urine Glucose (UA) NEG (NEG) Urine Ketones NEG (NEG) Urine Occult Blood NEG (NEG) Urine Nitrite NEG (NEG) Urine Bilirubin NEG (NEG) Urine Urobilinogen NEG (NEG) Urine Leukocyte Esterase NEG (NEG) Laboratory results per my review. Medications Administered Medications (Trade) Dose Ordered Sig/Melany Route Start Time Stop Time Status Last Admin Dose Admin Gabapentin (Neurontin Cap) 100 mg NOW STAT PO 04/12/18 19:49 04/12/18 19:50 DC 04/12/18 20:31 100 MG Oxycodone/ Acetaminophen (Percocet 5-325mg Tab) 1 tab NOW STAT PO 04/12/18 19:49 04/12/18 19:50 DC 04/12/18 20:08 1 TAB Lidocaine (Lidoderm Patch 5%) 1 patch NOW STAT TD 04/12/18 19:49 04/12/18 19:50 DC 04/12/18 20:07 1 PATCH Cyclobenzaprine HCl (Flexeril Tab) 5 mg NOW STAT PO 04/12/18 19:49 04/12/18 19:50 DC 04/12/18 20:08 5 MG ED Course 1648: The patient was evaluated in room A2. A complete history and physical exam was performed. 1937: I reevaluated the patient. I updated her on the results. 1948: Flexeril Tab 5 mg PO, Lidocaine 1 patch TD, Percocet 5-325 mg 1 tab PO, Gabapentin 100 mg PO. 2129: Upon reevaluation, the patient is feeling better. I discussed the findings and the treatment plan with the patient. She was able to walk here with a steady gait using her walker in her usual fashion. Discussed her pain medication, f/u with her back specialist and her PCP, sx to watch/return for, she verbalizes agreement and understanding. She was discharged home. Medical Decision Differential diagnoses include major intracranial, cervical, spinal, thoracic, abdominal, pelvic and neurologic injury. Fracture, contusion, sprain, strain, laceration, abrasions included as well. No evidence of trauma or other acute new pathology. Discussed possible hardware loosening as mentioned and pt was aware of this as well as other chronic findings noted. I do not suspect uti/pyelo, no other evidence of other GI//vascular pathology for her pain. No pathologic fx, no sx to suggest cauda equina, acute discitis, epidural abscess/hematoma. Pt offered additional medication here and declined. Most likely additional exertion today led to additional pain compared to her chronic daily pain. Pt states still performing home PT, discussed possible need for additional PT. Discussed use of walker/ cane at all times to help prevent falls. Discussed sx to watch/return for, she verbalized understanding and was agreeable with plan. Medication Reconcilliation Current Medication List: was personally reviewed by me Blood Pressure Screening Patient's blood pressure: Elevated blood pressure Blood pressure disposition: Referred to PCP Impression Primary Impression: Leg pain, left Additional Impression: Chronic back pain Scribe Attestation The scribe's documentation has been prepared under my direction and personally reviewed by me in its entirety. I confirm that the note above accurately reflects all work, treatment, procedures, and medical decision making performed by me. Departure Information Dispostion Home / Self-Care Prescriptions Cyclobenzaprine Hcl (FLEXERIL) 5 Mg Tab 5 MG PO TID for Pain, #10 TAB PRN Prov: Medina Strong DO 04/12/18 Referrals Roseline Mullen DO (PCP) Patient Instructions [facility] Additional Instructions Please call and follow-up with your back doctor as a precaution. You may continue your normal medicines as prescribed. If you have any worsening pain, are unable to walk, develop fevers, vomiting, notice a change in your bowel movements, fluctuations with your blood sugar or you have any other new or concerning symptoms, please return to the emergency room. Please be cautious while taking the extra muscle relaxer, as in combination with the other medications it may make you more dizzy or drowsy. If you feel you are having any side effects, please stop taking it right away. You may use the pain patch and apply it to the most painful area. This should not interact with any of your other medications and may provide some additional temporary relief. This may be applied in the morning and taken off at bedtime. Please be cautious to avoid any additional exertion as the additional exertion today most likely was the cause of the exacerbation of your pain. Problem Qualifiers Additional Impression: Chronic back pain Back pain location: low back pain Back pain laterality: left Sciatica presence: with sciatica Sciatica laterality: sciatica of left side Qualified Codes: M54.42 - Lumbago with sciatica, left side; G89.29 - Other chronic pain
[2018-04-12] MEDS ORDERED: CYCL5TAB PO (21:15)
[2018-04-12 21:42] VITALS: BP 157/73; PULSE 64; O2SAT 94
== END 2018-04-12 21:44 | disposition home or self-care (01) ==
LOC: EDBD 16:45 → C.EDA 16:46
DX: M54.42 Lumbago with sciatica, left side (principal); G89.29 Other chronic pain; E11.43 Type 2 diabetes mellitus with diabetic autonomic (poly)neuropathy; E78.5 Hyperlipidemia, unspecified; K21.9 Gastro-esophageal reflux disease without esophagitis; Z90.89 Acquired absence of other organs; Z90.49 Acquired absence of other specified parts of digestive tract; Z90.710 Acquired absence of both cervix and uterus; Z98.890 Other specified postprocedural states; Z88.2 Allergy status to sulfonamides; Z88.1 Allergy status to other antibiotic agents; Z88.8 Allergy status to other drugs, medicaments and biological substances; Z79.82 Long term (current) use of aspirin; Z79.899 Other long term (current) drug therapy

== ENCOUNTER 2020-07-08 06:58 | Observation (INO) ==
[~2020-07-08 06:58] MED LIST changes: -AMLO10TA4 PO; -ATOR10TA82 PO; +BACITRACIN INJ 50,000 UNIT VIAL ONE; +BUPIVACAINE 0.25% 30 ML VIAL ONE; -CALC500C70 PO; -DICY10CA12 PO; -GARLIC OIL PO; -HYDR25TA4 PO; +LIDOCAINE HCL 1% 20 ML VIAL ONE; -LISI40TA PO; -LORA-741 PO; -MISCCAP80 PO; -MULT-506 PO; -PANT40TA PO; -POLY335019 PO; -SIME1CAP9 PO; -SUCR1TAB29 PO; -TRAZ-119 PO
[2020-07-08] MEDS ORDERED: fentaNYL citrate 100 MCG/2 ML VIAL ONE (07:10)
[2020-07-08] MEDS ORDERED: CEFAZOLIN 250 MG/ML 1 GM VIAL ONE (07:29)
--- NOTE | 2020-07-08 07:36 | Anesthesiology Consultation ---
Date of Service July 08, 2020 Assessment & Plan (1) Encounter for pre-operative examination: Chart Review Chart Review: Acceptable Risk for Surgery Consults Requested none ASA ASA4 Proposed Anesthesia Anesthesia Type: MAC Risk / Benefits Reviewed With: PT / POA / Parent / Guardian, Accepts Plan and Informed Consent Obtained History Surgery Operation Date: 07/08/20 08:00 Proposed Procedures p Pacemaker Insertion- BI-V possible Left Bundle - Ewa Cerda, Height/Weight Height: 4 ft 11 in Weight: 56 kg Allergies Allergy/AdvReac Type Severity Reaction Status Date / Time metformin Allergy Unknown GI SYMPTOMS Verified 07/08/20 06:58 nitrofurantoin Allergy Unknown NAUSEA, Verified 07/08/20 06:58 TEMPERATURE ELEVATION Sulfa (Sulfonamide Allergy Unknown UNKNOWN Verified 07/08/20 06:58 Antibiotics) Medications Home Medications Medication Instructions Recorded Confirmed Last Taken aspirin 81 mg PO DAILY 11/11/19 07/08/20 Unknown atorvastatin 10 mg PO DAILY 11/11/19 07/08/20 Unknown bupropion HCl 50 mg PO DAILY 11/11/19 07/08/20 Unknown citalopram 60 mg PO DAILY 11/11/19 07/08/20 Unknown gabapentin 100 - 200 mg PO TID 11/11/19 07/08/20 Unknown glipizide 2.5 mg PO DAILY 11/11/19 07/08/20 Unknown metoprolol succinate 100 mg PO BID 11/11/19 07/08/20 Unknown oxycodone-acetaminophen 1 tab PO Q4H PRN 11/11/19 07/08/20 Unknown pantoprazole 40 mg PO DAILY 11/11/19 07/08/20 Unknown Calcium + Vitamin D See Rx Instructions .ROUTE .COMPLEX 07/08/20 07/08/20 Unknown cranberry extract 250 mg PO BID 07/08/20 07/08/20 Unknown dicyclomine [Bentyl] 10 mg DAILY PRN 07/08/20 07/08/20 Unknown flaxseed oil 1,000 mg PO BID 07/08/20 07/08/20 Unknown fluticasone propionate [Flonase] 2 spray INTRANASAL DAILY 07/08/20 07/08/20 Unknown furosemide [Lasix] 20 mg PO DAILY 07/08/20 07/08/20 Unknown garlic 1,000 mg BID 07/08/20 07/08/20 Unknown lactobacillus combination no.4 3,000 mmu cells PO DAILY 07/08/20 07/08/20 Unknown [Probiotic] melatonin 5 mg PO DAILY PRN 07/08/20 07/08/20 Unknown peg 400-propylene glycol (PF) 1 drp DIRECTED PRN 07/08/20 07/08/20 Unknown [Systane (PF)] polyethylene glycol 3350 [Miralax] 17 g PO DAILY PRN 07/08/20 07/08/20 Unknown simethicone [Gas-X Extra Strength] 125 mg PO DAILY PRN 07/08/20 07/08/20 Unknown tobramycin-dexamethasone [TobraDex] 1 drp OPHTHALMIC (EYE) 07/08/20 Unknown NPO Date Last Intake of Fluids: 07/08/20 Time Last Intake of Fluids: 00:00 Date Last Intake of Solids: 07/08/20 Time Last Intake of Solids: 00:00 Past Medical History Medical History (Updated 07/08/20 @ 07:48 by Tin Altamirano DO) Abdominal pain Contusion of multiple sites Diastolic heart failure (Unknown) Dysphagia (Unknown) Fall Hemoperitoneum History of adenomatous polyp of colon (Unknown) Lumbar stenosis with neurogenic claudication (09/03/14) S/P colonoscopy Systolic heart failure (Unknown) "echo 11/02/11 showed mild global hypokinesis LVEF 45-50% " On 06/12/12 09:21 Jefry Merlos wrote "echo 11/02/11 showed mild global hypokinesis LVEF 45-50% " Exercise / Class Metabolic Activity III < 4 Walking/Shop/Light housework Past Surgical History Surgical History (Updated 07/08/20 @ 07:33 by Tin Altamirano DO) History of cardiac cath S/P lumbar spinal fusion Past Anesthesia History No Hx of Anesthesia Complications and No Family Hx of Anesthesia Complications History of PONV No Hx of PONV and No Hx of Motion Sickness Social History Smoking Status: Never smoker Hx Alcohol Use: No Hx Substance Use: No substance use type: does not use Physical Exam Vital Signs Last Vital Signs Temp 98.2 F 07/08/20 07:15 Pulse 60 07/08/20 07:15 Resp 17 07/08/20 07:15 ENMT Mouth: no dentition abnormality Thyromental Distance: > or= 3.5 Finger Breadths Mallampati Class: II Neck normal visual inspection Respiratory normal respiratory effort Auscultation: lungs clear to auscultation bilaterally Cardiovascular Rate/Rhythm: regular rate and regular rhythm Heart Sounds: + murmur (VENU 2/6) Testing Laboratory Results 03/14/20 WBC 7.6 Hgb 12.4 platelet 199 Na 139 K 5.0 Cl 100 CO2 27 BUN 26 Cr 1.1 glucose 107 Electrocardiogram Date: 11/11/19 Findings: + NSR @ (61 bpm) and + LBBB Echocardiogram Date: 04/15/20 LV wall thickness is mildly increased Septal motion is abnormal consistent with LBBB Remaining LV wall segments are moderately hypokinetic LV EF is 30-34% LV diastolic function is mildly abnormal (grade 1) Mild AV sclerosis is present Mild AV regurgitation is present Calcification of posterior MV annulus with restricted valve leaflet mobility There is moderate to severe mitral insufficiency Mild TR is present Estimated PA systolic pressure is borderline elevated at 35-40mm Hg Stress Test Date: 12/12/19 Mild global hypokinesis of the LV LV EF is calculated at 46% Lexiscan nuclear cardiac stress test negative for ischemia
--- NOTE | 2020-07-08 08:02 | History & Physical Report ---
Date of Service July 08, 2020 Assessment & Plan (1) Systolic heart failure: (2) NICM (nonischemic cardiomyopathy): (3) LBBB (left bundle branch block): History of Present Illness Chief Complaint: fatigue Primary Care Provider: Roseline Mullen, DO pt with increased SOB and fatigue Allergies Allergy/AdvReac Type Severity Reaction Status Date / Time metformin Allergy Unknown GI SYMPTOMS Verified 07/08/20 06:58 nitrofurantoin Allergy Unknown NAUSEA, Verified 07/08/20 06:58 TEMPERATURE ELEVATION Sulfa (Sulfonamide Allergy Unknown UNKNOWN Verified 07/08/20 06:58 Antibiotics) Home Medications Home Medications Medication Instructions Recorded Confirmed Type aspirin 81 mg PO DAILY 11/11/19 07/08/20 History atorvastatin 10 mg PO DAILY 11/11/19 07/08/20 History bupropion HCl 50 mg PO DAILY 11/11/19 07/08/20 History citalopram 60 mg PO DAILY 11/11/19 07/08/20 History gabapentin 100 - 200 mg PO TID 11/11/19 07/08/20 History glipizide 2.5 mg PO DAILY 11/11/19 07/08/20 History metoprolol succinate 100 mg PO BID 11/11/19 07/08/20 History oxycodone-acetaminophen 1 tab PO Q4H PRN 11/11/19 07/08/20 History pantoprazole 40 mg PO DAILY 11/11/19 07/08/20 History Calcium + Vitamin D See Rx Instructions .ROUTE .COMPLEX 07/08/20 07/08/20 History cranberry extract 250 mg PO BID 07/08/20 07/08/20 History dicyclomine [Bentyl] 10 mg DAILY PRN 07/08/20 07/08/20 History flaxseed oil 1,000 mg PO BID 07/08/20 07/08/20 History fluticasone propionate [Flonase] 2 spray INTRANASAL DAILY 07/08/20 07/08/20 History furosemide [Lasix] 20 mg PO DAILY 07/08/20 07/08/20 History garlic 1,000 mg BID 07/08/20 07/08/20 History lactobacillus combination no.4 3,000 mmu cells PO DAILY 07/08/20 07/08/20 History [Probiotic] melatonin 5 mg PO DAILY PRN 07/08/20 07/08/20 History peg 400-propylene glycol (PF) 1 drp DIRECTED PRN 07/08/20 07/08/20 History [Systane (PF)] polyethylene glycol 3350 [Miralax] 17 g PO DAILY PRN 07/08/20 07/08/20 History simethicone [Gas-X Extra Strength] 125 mg PO DAILY PRN 07/08/20 07/08/20 History tobramycin-dexamethasone [TobraDex] 1 drp OPHTHALMIC (EYE) 07/08/20 History Past Med/Surg History Medical History Abdominal pain Contusion of multiple sites Diastolic heart failure (Unknown) Dysphagia (Unknown) Fall Hemoperitoneum History of adenomatous polyp of colon (Unknown) Lumbar stenosis with neurogenic claudication (09/03/14) S/P colonoscopy Systolic heart failure (Unknown) "echo 11/02/11 showed mild global hypokinesis LVEF 45-50% " On 06/12/12 09:21 Jefry Merlos wrote "echo 11/02/11 showed mild global hypokinesis LVEF 45-50% " Surgical History History of cardiac cath S/P lumbar spinal fusion Family History Mother No problems noted. Social History Smoking Status: Never smoker Hx Alcohol Use: No Hx Substance Use: No Beliefs That Will Affect Care: None Current Living Situation: Spouse Feels Safe at Home: Yes Safety Concerns: Feels Safe At This Time Review of Systems All systems reviewed & are unremarkable except as noted in HPI & below Physical Exam Physical Exam: aaox3, NAD NC/AT, EOMI Supple No JVD Nrl S1/S2, No murmur CTA b/l no w/r/r soft nt/nd no LE edema b/l skin intact no focal deficits Results & Data ([facility]) Vital Signs (Past 12 Hours) Vital Signs Temp Pulse Resp 07/08/20 07:15 36.8 C 60 17
[2020-07-08] MEDS ORDERED: PROPOFOL IV EMULSION 10 MG/ML 20 ML VIAL IV ONE (10:53)
--- NOTE | 2020-07-08 10:57 | Post Anesthesia Assessment ---
Date of Service July 08, 2020 Post Sedation Assessment Vital Signs Temp Pulse Resp 07/08/20 07:15 36.8 C 60 17 Recovery Score Activity: Moves 4 extremities Respiration: Deep Breath/Cough Circulation: +/-20% PreAnes Value Consciousness: Fully Awake Oxygen Saturation: > 92% On Room Air Discharge Sedation Level of Care: Fast Track Phase II Post Sedation Plan On clinical assessment, the patient appears to have tolerated the sedation without complications. Patient is recovering as anticipated. Patient will continue to be monitored by nursing and may be discharged when sedation discharge criteria are met per below protocol. Upon Completions of procedure up to 15 minutes continue every 5 minute vital signs and the P.A.R. score; then discharge to a Phase I or Fast Track to Phase II per the following guidelines: * Discharge Patient to appropriate Phase II area if PAR is 8 or greater or return to pre- procedure baseline. The post - procedure orders will be as directed. * If PAR score is less than 8 or not return to pre-procedure baseline then patient will follow Phase I monitoring till PAR is reached for Phase II. The Phase I may be done in procedure room or may call to secure a Phase I area. * If naloxone or flumazenil are used for reversal, hold in Phase I for continued monitoring from when last reversal dose was given for a minimum of 60 minutes or longer pending the nurse and/or physician discretion of patient condition before discharge to Phase II. Please call the Sedation Physician to re-evaluate and complete post-note for discharge to Phase II area. Do NOT discharge from procedure sedation or Phase 1 until post- sedation evaluation note is complete by procedure /sedation MD Sedation Discharge Instructions to be given to the patient at discharge to home.
--- NOTE | 2020-07-08 10:58 | Operative Report ---
Post Operative Report Pre & Post Diagnosis NICM, LBBB, Chronic heart failure with reduced EF-MICHELLE class II Operation Date: 07/08/20 08:00 <No data on this case meets the specified criteria> I identified the patient and participated in the time-out.: Yes Procedure Operation Date: 07/08/20 08:00 Actual Procedures p ICD Biventricular Implant - Ewa Cerda DO Surgeon Ewa Cerda, Trimmer Hand none Estimated Blood Loss 50 Findings Consistent with Post-Op Diagnosis Specimens none Description of Procedure see official report I attest to the content of the Intraoperative Record and any orders documented therein. Any exceptions are noted below.
--- NOTE | 2020-07-08 11:10 | Discharge Summary ---
Date of Service July 09, 2020 Admission HPI Per Admitting Provider pt with increased SOB and fatigue Admission Exam Per Admitting Provider aaox3, NAD NC/AT, EOMI Supple No JVD Nrl S1/S2, No murmur CTA b/l no w/r/r soft nt/nd no LE edema b/l skin intact no focal deficits Principal Diagnosis NICM s/p BiV ICD Discharge Exam aaox3, NAD NC/AT, EOMI Supple No JVD Nrl S1/S2, No murmur CTA b/l no w/r/r soft nt/nd no LE edema b/l skin intact no focal deficits left pectoral incision intact, no hematoma mild ecchymosis Discharge Data Allergies Allergy/AdvReac Type Severity Reaction Status Date / Time metformin Allergy Unknown GI SYMPTOMS Verified 07/08/20 06:58 nitrofurantoin Allergy Unknown NAUSEA, Verified 07/08/20 06:58 TEMPERATURE ELEVATION Sulfa (Sulfonamide Allergy Unknown UNKNOWN Verified 07/08/20 06:58 Antibiotics) Procedures Performed Operation Date: 07/08/20 08:00 Actual Procedures p ICD Biventricular Implant - Ewa Cerda DO Ordered Studies ECG: -V paced CXR: No PTX, leads in position ICD Interrogation: Normal function Lead testing stable since implant 07/08/20 06:45 EP Lab Images for PACS ONCE Hospital Course (1) Systolic heart failure: (2) NICM (nonischemic cardiomyopathy): (3) LBBB (left bundle branch block): Total Time Total Time Spent Total Time Spent (In Minutes): 40 Total Time Includes: Examination of the Patient, Discharge Planning, Medication Reconciliation and Other Discharge Plan Discharge Items Patient Disposition: Home - Self-Care Reason For Visit: BIV ICD Discharge Diagnosis: NICM, Left bundle block, heart failure with reduced EF Condition on Discharge: Good Activity: As commented below Activity Comment: do not raise the left elbow over the left shoudler for 1 month Lifting: No more than 10 pounds Lifting Comment: do not lift more than 10 pounds with the left arm for 2 weeks Bathing: Keep incision dry Bathing Comment: keep dressing on and dry until wound check next week Sexual Activity: After two weeks Non-emergency contact: Resident [facility] Call non-emergency contact if: you have any medication questions Follow-up/Referrals: Roseline Mullen DO [Primary Care Provider] - Diet: Heart Healthy Addtl Attending Provider Instructions: Device and wound check next week at [facility] Cardiology office on Mon07/15/2020 at 10:45am Try to wear the surgical bra or a sports bra for the next 2 weeks to help with healing if you notice any swelling at the device area call [facility] Cardiology office immediately Pending Studies at Discharge: No Stand-Alone Forms: My [facility] Medications and DC Order Prescriptions: Continued polyethylene glycol 3350 [Miralax] 17 gram Powder In Packet 17 g PO DAILY PRN (Reason: Constipation) RF: 0 garlic 1,000 mg Capsule 1,000 mg BID RF: 0 flaxseed oil 1,000 mg Capsule 1,000 mg PO BID RF: 0 simethicone [Gas-X Extra Strength] 125 mg Tablet,Chewable 125 mg PO DAILY PRN (Reason: Abdominal Discomfort) RF: 0 furosemide [Lasix] 20 mg Tablet 20 mg PO DAILY RF: 0 fluticasone propionate [Flonase] 50 mcg/actuation [place],Suspension 2 spray INTRANASAL DAILY RF: 0 dicyclomine [Bentyl] 10 mg Capsule 10 mg DAILY PRN (Reason: Abdominal Pain) RF: 0 tobramycin-dexamethasone [TobraDex] 0.3-0.1 % Drops,Suspension 1 drp OPHTHALMIC (EYE) RF: 0 Systane (PF) 0.4-0.3 % Dropperette 1 drp DIRECTED PRN (Reason: Dry Eyes) RF: 0 cranberry extract 250 mg Tablet 250 mg PO BID RF: 0 melatonin 5 mg Tablet 5 mg PO DAILY PRN (Reason: Sleep) RF: 0 Probiotic 3 billion cell Capsule 3,000 mmu cells PO DAILY RF: 0 Calcium + Vitamin D See Rx Instructions .ROUTE .COMPLEX RF: 0 citalopram 40 mg tablet 60 mg PO DAILY RF: 0 atorvastatin 10 mg tablet 10 mg PO DAILY RF: 0 metoprolol succinate 100 mg tablet extended release 24 hr 100 mg PO BID RF: 0 oxycodone-acetaminophen 5-325 mg tablet 1 tab PO Q4H PRN (Reason: Pain) RF: 0 bupropion HCl 100 mg tablet 50 mg PO DAILY RF: 0 glipizide 2.5 mg tablet extended release 24hr 2.5 mg PO DAILY RF: 0 pantoprazole 40 mg tablet,delayed release (DR/EC) 40 mg PO DAILY RF: 0 gabapentin 100 mg capsule 100 - 200 mg PO TID RF: 0 aspirin 81 mg Tablet,Delayed Release (Dr/Ec) 81 mg PO DAILY RF: 0 Discharge Orders: Discharge Order (Routine); Ordered 07/09/20 Ordered By: Ewa Cerda Admission Data Admit Date/Time: 07/08/20 08:53 Attending Provider: Ewa Cerda Admit Provider: Ewa Cerda Primary Care Provider: Roseline Mullen
--- NOTE | 2020-07-08 11:34 | Anesthesiology Progress Note ---
Date of Service July 08, 2020 Anesthesia Post Procedure Vital Signs Vital Signs: Temp Pulse Resp BP 07/08/20 11:20 60 18 138/62 07/08/20 11:05 60 18 140/68 07/08/20 07:15 98.2 F 60 17 Transfer of Care Handoff Completed per policy Notes Mental Status: alert / awake / arousable and participated in evaluation Patient Amnestic to Procedure: Yes Nausea / Vomiting: adequately controlled Pain: adequately controlled Airway Patency, RR, SpO2: stable & adequate BP & HR: stable & adequate Hydration State: stable & adequate Anesthetic Complications: no major complications apparent and Pt Satisfied with anesthetic care
[2020-07-08] MEDS ORDERED: MELATONIN 3 MG TAB PO PRN (12:46)
[2020-07-08] MEDS ORDERED: POLYETHYLENE (MIRALAX) 17 GM PACK PO PRN (13:00)
[2020-07-08] MEDS ORDERED: ATROPINE SULFATE 0.1 MG/ML 10ML SYR IV PRN (13:00)
[2020-07-08] MEDS ORDERED: NURSING DECISION MEDICATION ONE (13:00)
[2020-07-08] MEDS ORDERED: OXYCODONE/ACETAMINOPHEN 5mg/325mg TAB PO PRN (13:00)
[2020-07-08] MEDS ORDERED: SIMETHICONE 80 MG CHEW PO PRN (13:00)
[2020-07-08] MEDS ORDERED: ePHEDrine sulfate 50 MG/ML AMP IV PRN (13:00)
[2020-07-08] MEDS ORDERED: ACETAMINOPHEN 325 MG TAB PO PRN (13:00)
[2020-07-08] MEDS: GABAPENTIN 100 MG CAP PO SCH ×2 (13:26→20:20)
[2020-07-08] MEDS: OXYCODONE/ACETAMINOPHEN 5mg/325mg TAB PO PRN ×3 (13:27→20:21)
[2020-07-08] MEDS: METOPROLOL SUCC 50MG EXT REL TAB PO SCH (20:21)
[2020-07-08] MEDS ORDERED: NON-FORMULARY MEDICATION (Garlic 1,000 MG) PO SCH (21:00)
[2020-07-08] MEDS ORDERED: CRANBERRY EXTRACT 250 MG PO SCH (21:00)
[2020-07-08] MEDS ORDERED: NON-FORMULARY MEDICATION (Flaxseed Oil 1,000 MG) PO SCH (21:00)
[2020-07-09] MEDS: OXYCODONE/ACETAMINOPHEN 5mg/325mg TAB PO PRN (02:18)
--- NOTE | 2020-07-09 06:25 | Electrocardiogram Report ---
Test Reason : Blood Pressure : / mmHG Vent. Rate : 060 BPM Atrial Rate : 060 BPM P-R Int : 140 ms QRS Dur : 168 ms QT Int : 514 ms P-R-T Axes : 000 045 176 degrees QTc Int : 514 ms Poor data quality, interpretation may be adversely affected AV dual-paced rhythm Abnormal ECG When compared with ECG of 11-NOV-2019 16:02, AV dual-paced rhythm has replaced Sinus rhythm Confirmed by David Frost ([id number]) on 07/09/2020 6:24:57 AM Referred By: Ewa Cerda Confirmed By:David Frost
[2020-07-09] MEDS ORDERED: glipiZIDE ER 2.5 MG TABCR PO SCH (06:30)
--- NOTE | 2020-07-09 07:23 | XRay Report ---
XR chest 2V PA/lateral CLINICAL HISTORY: post left bundle ICD dyspnea COMPARISON STUDY: 11/11/2019 FINDINGS: Interval placement of a cardiac pacer. No evidence for pneumothorax. Lungs are clear. Diaph ragms are smooth. IMPRESSION: No acute process. Cardiac pacer in good position. ACT 112: Negative or not required by law. The above report was generated using voice recognition software. It may contain grammatical, syntax or spelling errors. Electronically signed by: Murray Blake M.D. 07/09/2020 7:21 AM
[2020-07-09] MEDS: GABAPENTIN 100 MG CAP PO SCH (07:47)
[2020-07-09] MEDS: METOPROLOL SUCC 50MG EXT REL TAB PO SCH (07:49)
[2020-07-09] MEDS ORDERED: buPROPion HCl 100 MG TABLET PO SCH (09:00)
[2020-07-09] MEDS ORDERED: FUROSEMIDE 20 MG TAB PO SCH (09:00)
[2020-07-09] MEDS ORDERED: FLUTICASONE PROPIONATE NA SPR 16 GM BTL NAE SCH (09:00)
[2020-07-09] MEDS ORDERED: ASPIRIN 81 MG ECTAB PO SCH (09:00)
[2020-07-09] MEDS ORDERED: ATORVASTATIN 10 MG TAB PO SCH (09:00)
[2020-07-09] MEDS ORDERED: PANTOprazole 40 MG TAB PO SCH (09:00)
[2020-07-09] MEDS ORDERED: LACTOBACILLUS ACIDOPHILUS (FLORANEX) TAB PO SCH (09:00)
[2020-07-09] MEDS ORDERED: CITALOPRAM 20 MG TAB PO SCH (09:00)
--- NOTE | 2020-07-13 23:04 | Operative Report (OR) ---
DATE OF OPERATION: 07/08/2020 PREOPERATIVE DIAGNOSES: Nonischemic cardiomyopathy, left bundle branch block, chronic heart failure secondary to reduced ejection fraction, [place] [employer] class 3. POSTOPERATIVE DIAGNOSES: Nonischemic cardiomyopathy, left bundle branch block, chronic heart failure secondary to reduced ejection fraction, [place] [employer] class 3. PROCEDURE: Biventricular rate responsive implantable cardiac defibrillator (left ventricular lead positioned over the left bundle) along with peripheral and coronary sinus venograms along with intracardiac EGM mapping of the His bundle region, all under fluoroscopic guidance. SURGEON: Ewa Cerda DO. ASSISTANTS: None. ANESTHESIA: Monitored anesthetic care administered via anesthesiology. Please refer to their notes for complete details. Start time was 0802, end time was 1052. She got 100 mcg of fentanyl, 250 mg of propofol. INTRAVENOUS CONTRAST: 40 mL. ESTIMATED BLOOD LOSS: 50 mL. INTRAVENOUS FLUIDS: 250 mL. COMPLICATIONS: None. CONDITION: Stable. URINE OUTPUT: Not applicable. SPECIMENS: None. FINDINGS: See below. DRAINS: None. INDICATIONS: This is an 84-year-old female with past medical history for nonischemic cardiomyopathy, ejection fraction 34%, left bundle branch block, chronic heart failure secondary to reduced ejection fraction, [place] [employer] class 2, normal coronaries based on a cardiac cath from 10/2011, hypertension, hyperlipidemia, udarasus-es-heectd mitral regurgitation, moderate tricuspid regurgitation, moderate pulmonary hypertension, diabetes, irritable bowel syndrome, and gastroparesis. She was recommended biventricular device due to the nonischemic cardiomyopathy, left bundle branch block and heart failure. CONSENT: Consent was obtained prior to the patient going into electrophysiology lab. The patient was informed of the risks, benefits and alternatives to the procedure. Risks include but not limited to sudden cardiac , cardiac arrhythmia, cerebrovascular accident, myocardial infarction, injury to the blood vessels, chamber of the heart, lung, bleeding, and infection. The patient understood these risks and agreed to the procedure as planned. Informed consent was obtained. DESCRIPTION OF THE PROCEDURE: The patient was brought into the electrophysiology lab in a fasting state. She was connected to continuous cardiac monitoring. A timeout was performed to ensure patient identity and procedure correctly. The patient was prepped and draped over the left infraclavicular space in normal surgical standard fashion. Monitored conscious sedation was given throughout the procedure for patient's comfort level. Morton precautions were maintained throughout the procedure. 10 mL of 1% lidocaine-bupivacaine mixture were given in the left deltopectoral groove. Incision was made in the left deltopectoral groove. Blunt dissection was performed down to identify the cephalic vein; however, none could be identified, so peripheral venogram was performed to identify the axillary vein. Venous axillary access was obtained through a needle stick on 2 separate occasions. Through the more lateral stick, an 8-Emirati sheath was inserted over the guidewire, the dilator was removed and a second guidewire was inserted through the 8-Emirati sheath to allow for retained venous access. Sheath was removed and a 9.5-Emirati sheath was inserted over one of the guidewires without any resistance. Guidewire and dilator removed. The right ventricular defibrillator lead was then advanced into right ventricle and positioned into right ventricular apex under fluoroscopic guidance. There was adequate pacing and sensing thresholds and no diaphragmatic stimulation with high output pacing. The 8-Emirati sheath was peeled away and lead was fixated to pectoralis muscle using 0 silk suture. An 8-Emirati sheath was then inserted over the retained guidewire through the more lateral stick. The guidewire and dilator removed. The right atrial lead was then advanced into right atrium and positioned in the right atrial appendage under fluoroscopic guidance. There was adequate pacing and sensing thresholds and no diaphragmatic stimulation with high output pacing. The 8-Emirati sheath was peeled away and lead was fixated to pectoralis muscle using 0 silk suture. A 9.5-Emirati sheath was inserted over the more medial stick over the guidewire. The guidewire and dilator removed. The MPX outer coronary sinus sheath was advanced into right atrium. The guidewire and dilator removed and the coronary sinus was cannulated using a diagnostic Decapolar catheter and the MPX was advanced over it. A venogram of the balloon was then advanced into the MPX and a venogram of the coronary sinus was performed. There really was no vessel, the coronary sinus had very small twisty vessels and I did try seeing if I could wire a very small one in the posterolateral region with a Whisper but I was not able. So I opted to do a left bundle. The MPX was removed and the His preformed sheath [id number] from [employer] was advanced over a Glidewire and dilator, Glidewire and dilator removed. Then the pacing lead was advanced through the sheath and the His bundle was mapped with intracardiac EGM, the AH was found to be 118 and the HV was found to be 49 milliseconds. I marked where the His bundle region was in the [place] 30-degree on our monitor. Then I lupe an imaginary line to the apex and 2 cm down from the imaginary line another and then I advanced the catheter further down into that position with the [place] 30 to try to make sure the lead was positioned onto the septum. I did a few turns to start screwing the lead into the septum, each time pausing to watch the intracardiac electrograms on V1 and the stim to peak on V6 as well as any drops of impedance. I did this a few times in a serial fashion. I did have to reposition at one time where I got a whole new sheath and I ultimately had a nice threshold testing and the QRS complex looked good as well as when I gave contrast through the sheath, I was up against the septum. The outer sheath was then slid under fluoroscopic guidance and then the 9.5-Emirati sheath was peeled away and lead was fixated to pectoralis muscle using 0 silk suture. I did a pursestring around the venous puncture site as well. Then, the defibrillator pocket was created using blunt dissection over the pectoralis muscle within the pectoralis fascia. Pocket was flushed with copious amounts of bacitracin saline wash and inspected for hemostasis. The defibrillator was then attached to leads making sure the pins were in appropriate position, passed set screw and set screws were all tightened. Defibrillator was then placed in the pocket, making sure that the leads were lying flat beneath the device as well as being placed in a Tyrx pouch. The incision was then closed in 3-layer fashion with 2-0 Vicryl interrupted suture followed by 3-0 Vicryl interrupted suture, followed by 4-0 Monocryl running stitch and Dermabond was applied followed by a Telfa and micropore dressing. EQUIPMENT: 1. Pulse generator is a [employer] AFAR SEMAPHORE OPERATOR-D SureScan [id number], serial number [id number]. 2. The Tyrx pouch is reference [id number], lot number [id number], expiration 04/12/2021. 3. Right atrial lead Medtronic 5076-52 cm, serial number [id number]. 4. Right ventricular lead, Medtronic 6935M-62 cm, serial number [id number]. 5. Left bundle lead is a Medtronic 3830-69 cm, serial number [id number]. INTRAOPERATIVE TESTIN. Right atrial lead: P waves 2.3 millivolts, impedance 499 ohms, threshold 1.3 volts at 0.5 milliseconds. 2. Right ventricular lead: R waves 12.4 millivolts, impedance 666 ohms, threshold 0.9 volts at 0.5 milliseconds. 3. Left bundle lead programmed bipolar was 14.8 millivolts, impedance 830 ohms, threshold 1.1 volt at 0.5 milliseconds. FINAL PARAMETERS THROUGH THE DEVICE: 1. Right atrial lead: P waves 2 millivolts, impedance 399 ohms, threshold 1.5 volts at 0.4 milliseconds. 2. Right ventricular lead: R waves 8.1 millivolts, impedance 532 ohms, threshold 0.5 volts at 0.4 milliseconds. 3. The RV coil was 58 ohms. 4. Left bundle lead is 722 ohms and a threshold 0.75 volts at 0.4 milliseconds. FINAL PARAMETERS: DDDR 60/130, right atrial and right ventricular amplitude 3.5 volts, pulse width 0.4 milliseconds, sensitivity 0.3 millivolts. Left ventricular amplitude 4 volts, pulse width 0.4 milliseconds. A VT monitor zone at 140 beats per minute for 32 detection intervals, a VT zone 167 beats per minute for 16 detection intervals and VF zone at 200 beats per minute for 30/40 detection intervals. IMPRESSION: Successful implantation of biventricular rate responsive implantable cardiac defibrillator (the left ventricular lead is within the left bundle position) under fluoroscopic guidance along with peripheral and coronary sinus venogram as well as intracardiac electrogram mapping of the His bundle region. PLAN: Monitor the patient overnight, 12-lead ECG, chest x-ray. She is not allowed to lift the left elbow or left shoulder for 1 month. She cannot lift more than 10 pounds with the left arm for 2 weeks. She is to keep the dressing on and dry until her wound check next week. I attest to the content of the Intraoperative Record and any orders documented therein. Any exception s are noted below.
== END 2020-07-09 10:12 | disposition home or self-care (01) ==
LOC: 2S 06:58 → EP 06:58
PROC: EPB.ICD (2020-07-08 08:00)